=== PATIENT | female | born 1990 | race Caucasian/White ===

== ENCOUNTER → 2023-07-05 | Outpatient (REF) | payer OTHER ==
[~2023-07-05] MED LIST: CETIRIZINE HCL5 MG PO; PANTOPRAZOLE SO40 MG PO; SPIRONOLACTONE25 MG PO
== END ==
LOC: DX 09:47
PROVIDERS: ATTEND Nurse Practitioner
DX: R10.10 Upper abdominal pain, unspecified (principal)
CPT/HCPCS: 74250